=== PATIENT | male | born 1965 | race Caucasian/White ===

== ENCOUNTER 2017-02-12 09:06 | Emergency (ER) | payer SELFPAY ==
[~2017-02-12] VITALS: Ht 167.6 cm; Wt 56.7 kg
--- NOTE | 2017-02-12 09:06 | NUR ---
Patient was BIB [place] [employer] and taken to bed 10.
[2017-02-12 09:07] VITALS: BP 132/74
--- NOTE | 2017-02-12 09:12 | NUR ---
52/M PRESENT TO ER C/O PRE BOOK FOR LT HAND LACERATION.DENIES N/V/D; SKIN IS PINK/WARM/DRY; AAOX4 WITH EVEN AND STEADY GAIT; LUNGS CLEAR BL; HR EVEN AND REGULAR; PT DENIES ANY FEVER, CP, SOB, OR COUGH AT THIS TIME; PATIENT STATES PAIN OF 2/10 AT THIS TIME; ATIENT POSITIONED FOR COMFORT; HOB ELEVATED; BEDRAILS UP X2; BED DOWN. ER MD MADE AWARE OF PT STATUS.
--- NOTE | 2017-02-12 09:15 | NUR ---
DR WILEY AT BEDSIDE.
--- NOTE | 2017-02-12 09:27 | NUR ---
XRAY at bedside.
[2017-02-12] MEDS ORDERED: LIDOCAINE 1% ***ER ONLY *** 50 ML ONE (09:31)
[2017-02-12 10:06] VITALS: BP 128/77
--- NOTE | 2017-02-12 10:06 | NUR ---
Patient discharged with v/s stable. Written and verbal after care instructions given and explained. Patient verbalized understanding. Police with in custody. All questions addressed prior to discharge. Advised to follow up with PMD.
== END 2017-02-12 10:06 ==
LOC: MED 09:06
DX: S61.412A Laceration without foreign body of left hand, initial encounter (principal); Y04.0XXA Assault by unarmed brawl or fight, initial encounter; Y93.89 Activity, other specified; Y92.89 Other specified places as the place of occurrence of the external cause; Y99.8 Other external cause status
CPT/HCPCS: 12001; 73120; 90471; 90715; 99284; J2001; Q0092